=== PATIENT | male | born 1995 | race Caucasian/White ===

== ENCOUNTER 2018-08-09 03:05 | Emergency (ER) | END 2018-08-09 04:57 | disposition home or self-care (01) ==

== ENCOUNTER 2018-11-01 17:05 | Emergency (ER) | payer SELFPAY ==
[~2018-11-01] VITALS: Ht 180.3 cm; Wt 82.8 kg
[~2018-11-01 17:05] MED LIST: CEPH-443 PO; IBUP-1542 PO
[2018-11-01 17:18] VITALS: BP 144/63; PULSE 91; RESP 18; Ht 180.3 cm; Wt 82.8 kg
== END 2018-11-01 18:21 | disposition left against medical advice (07) ==
LOC: FTE 17:05
DX: Z53.21 Procedure and treatment not carried out due to patient leaving prior to being seen by health care provider (principal)